=== PATIENT | male | born 1990 | race Caucasian/White ===

== ENCOUNTER → 2018-03-14 11:02 | Emergency (ER) | payer OTHER ==
[~2018-03-14 11:02] MED LIST: Fluorescein Sod TOPICAL 0.6* 0.6 MG TEST OPHTHALMIC ONE; Tetracaine 0.5% OPTH.SOL 15ML* BTL ONE
[2018-03-14 12:01] VITALS: BP 133/75
--- NOTE | 2018-03-15 14:49 | ED ---
Juan Alberto Harper Angela, scribed for Uche Puckett MD on 03/14/18 at 1144 . Throat Pain/Nasal Congestion - HPI Summary HPI Summary: This pt is a 27 y/o male presenting to [facility] for evaluation of left eye after he removed a small piece of glass from eye. Pt reports that around 09:00 - 09: 30 today pt was working in placing glass when suddenly the glass shattered and a tiny piece went into his left eye. He notes the piece of glass was in the corner of his left eye and was able to remove it. Currently denies eye pain, blurry vision, headache, foreign body sensation. He states he is able to feel the sensation of a foreign body being in eye but does not have any pain. Pt presents today to make sure there was no damage done to his left eye. PMHx: Lasik surgery done 1.5 months ago. - History of Current Complaint Chief Complaint: EDEyeProblem Time Seen by Provider: 03/14/18 11:18 Hx Obtained From: Patient Onset/Duration: Sudden Onset, Other - denies any pain Severity: Mild Associated Signs And Symptoms: Positive: Negative. Negative: FB Sensation Cough: None Related History: Other (Noted In Comments) - s/p removing a small piece of glass from left eye - Allergies/Home Medications Allergies/Adverse Reactions: Allergies Allergy/AdvReac Type Severity Reaction Status Date / Time No Known Allergies Allergy Verified 03/14/18 11:16 PMH/Surg Hx/FS Hx/Imm Hx Endocrine/Hematology History: Denies: Hx Diabetes Cardiovascular History: Denies: Hx Hypertension - Surgical History Surgery Procedure, Year, and Place: Lasik surgery about 1.5 months ago Infectious Disease History: No Infectious Disease History: Denies: Traveled Outside the [place] in Last 30 Days - Family History Known Family History: Negative: Cardiac Disease, Hypertension - Social History Alcohol Use: Rare Substance Use Type: Reports: None Smoking Status (MU): Never Smoked Tobacco Review of Systems Negative: Fever, Chills Negative: Blurred Vision, Other - eye pain Negative: Headache All Other Systems Reviewed And Are Negative: Yes Physical Exam - Summary Physical Exam Summary: GENERAL: Patient is a well developed and nourished male who is lying comfortable in the stretcher. Patient is not in any acute respiratory distress. HEAD AND FACE: Normocephalic EYES: PERRLA, EOMI x 2. Tetracaine was used in left eye. Fluorescein eye stain test shows no corneal abrasion, no foreign body identified, including eyelid eversion. EARS: Hearing grossly intact. MOUTH: Oropharynx within normal limits. NECK: Supple, trachea is midline, no adenopathy, no JVD, no carotid bruit. CHEST: Symmetric, no tenderness at palpation LUNGS: Clear to auscultation bilaterally. No wheezing or crackles. CVS: Regular rate and rhythm, S1 and S2 present, no murmurs or gallops appreciated. ABDOMEN: Soft, non-tender. Bowel sounds are normal. No abdominal abnormal pulsations. EXTREMITIES: Full ROM in all major joints, no edema, no cyanosis or clubbing. NEURO: Alert and oriented x 3. No acute neurological deficits. Speech is normal and follows commands. SKIN: Dry and warm Triage Information Reviewed: Yes Vital Signs On Initial Exam: Initial Vitals Temp Pulse Resp BP Pulse Ox 97.6 F 57 16 128/81 98 03/14/18 11:13 03/14/18 11:13 03/14/18 11:13 03/14/18 11:13 03/14/18 11:13 Vital Signs Reviewed: Yes Procedures - Procedure Summary Procedure Summary: 2 drops of tetracaine was applied to the left eye followed by staining with fluorescein and examination underwent slit-lamp which showed no corneal abrasion. Eyelid eversion shows no foreign body - Eye Procedure Left Alcaine Drops Administered: No Diagnostics - Vital Signs Vital Signs Temp Pulse Resp BP Pulse Ox 03/14/18 11:13 97.6 F 57 16 128/81 98 - Laboratory Lab Results: Lab Results 03/14/18 Range/Units 11:51 HIV 1&2 Antibody Nonreactive (Nonreactive) Lab Statement: Any lab studies that have been ordered have been reviewed, and results considered in the medical decision making process. EENT Course/Dx - Course Course Of Treatment: 27-year-old male who presents to the emergency room for an examination after removing a piece of glass from the left eye. Patient currently denies any pain or blurry vision. On fluorescein examination, no corneal abrasion seen there are no foreign body included eyelid eversion. Patient will follow-up with his mom in service. - Diagnoses Provider Diagnoses: Encounter for eye exam Discharge - Sign-Out/Discharge Documenting (check all that apply): Discharge/Admit/Transfer - Discharge - Discharge Plan Condition: Stable Disposition: HOME Patient Education Materials: Fluorescein (Into the eye) Referrals: Garth Lu MD [Medical Doctor] - Additional Instructions: Please follow up with vice president of brand management, Dr. Lu. RETURN TO THE ED FOR ANY NEW OR WORSENING SYMPTOMS. - Billing Disposition and Condition Condition: STABLE Disposition: Home The documentation as recorded by the Juan Alberto miller Angela accurately reflects the service I personally performed and the decisions made by , Uche Puckett MD.
== END | disposition home or self-care (01) ==
LOC: ED 11:02
DX: Z01.00 Encounter for examination of eyes and vision without abnormal findings (principal); Z11.4 Encounter for screening for human immunodeficiency virus [HIV]
CPT/HCPCS: 36415; 86703; 99282; A9270-GY